=== PATIENT | female | born 1975 | race Caucasian/White ===

== ENCOUNTER 2023-06-14 21:10 | Emergency (ER) | payer OTHER, SELFPAY ==
[2023-06-14 22:03] VITALS: BP 115/75; PULSE 70; RESP 12; TEMP 36.6; O2SAT 97; BMI 21.9
--- NOTE | 2023-06-14 22:23 | ED_ITS ---
HPI - Chest Pain General Time Seen by Provider: 22:23 Date Seen: 06/14/23 Chief Complaint: Chest Pain Stated Complaint: pain in center of chest Time Seen by Provider: 06/14/23 22:23 Source: patient Mode of arrival: ambulatory Limitations: no limitations History of Present Illness HPI narrative: Allyssa is a very pleasant 47-year-old female previously healthy comes to the emergency room for evaluation of chest pain. Patient noted the onset of chest discomfort that she described as somewhat burning after she returned from a lunch today. This was not associated with shortness of breath radiation or vomiting. Patient tried Pepto-Bismol and she thinks maybe it helped she did not pay much attention to this discomfort from 1400 hours until 1700 hours when it seemed to bother her once again. She did take some Tums at home which did not seem to help. She did take 1 baby aspirin prior to arrival here. While she denies vomiting and nausea, she does state that she had a loose stool and that perhaps she felt a little queasy. She still does not feel that an acid taste in her mouth but feels similar to when someone has vomited. She has no history of heart problems, recent illnesses, recent viruses. She did sprain her ankle a little over 2 weeks ago and was in a boot for an extended period. She notes no calf tenderness history of DVT in herself or family. She is not short of breath tonight. Related Data Home Medications Medication Instructions Recorded Confirmed No Known Home Medications 06/14/23 06/14/23 Allergies Allergy/AdvReac Type Severity Reaction Status Date / Time codeine Allergy Verified 06/14/23 22:08 Review of Systems Status of ROS Reports: 10 or more systems reviewed and unremarkable except as noted in History and below Const Denies: fever or chills ENMT Reports: neck pain (Right upper trapezial discomfort.); Denies: throat pain Cardio Reports: chest pain and palpitations (When she has stress or anxiety); Denies: swelling of feet/ankles, lightheadedness or shortness of breath with exertion Resp Denies: shortness of breath, cough or wheezing GI Reports: diarrhea; Denies: abdominal pain, nausea or vomiting Denies: painful urination or urinary frequency Musculo Reports: neck pain (Right upper trapezial discomfort.); Denies: back pain, extremity pain or extremity swelling Integ/Breast Denies: rash or itching Neuro Denies: headache or numbness in extremities Allergy/Immuno Denies: wheezing PFSH PFSH Social History Smoking Status: Never smoker Do you use any of these nicotine containing products: None Second hand tobacco smoke exposure: No How often do you have a drink containing alcohol: monthly or less How often do you have six or more drinks on one occasion: Never AUDIT-C Alcohol total score: 1 Non-prescribed substance use: denies use service: No Exam Narrative Exam Narrative: Ange is alert and oriented. Very pleasant woman. No acute distress. External ears eyes nose clear. Heart with regular rate and rhythm without murmur or rub. Lungs are clear in all lung lara. Abdomen is soft and nontender. Lower extremities without calf tenderness or swelling. Moving all extremities. Const Vital Signs, click to edit/add: Vital Signs - 24 hr 06/14/23 22:03 Temperature 97.8 F Pulse Rate [Left Pulse Oximeter] 70 Respiratory Rate 12 Blood Pressure [Right Upper Arm] 115/75 Pulse Oximetry 97 Oxygen Delivery Method Room Air Documenting provider has reviewed patient's vital signs: yes Course Course ED Course: Differential diagnosis includes but not limited to acute coronary syndrome, pericarditis/myocarditis, esophagitis, reflux, PE, gastritis, biliary colic. Will place IV and obtain EKG and troponin x2. Chest x-ray at this time. CBC, comprehensive, CRP, pending at this time. Reevaluation(s) Reevaluation #1: Initial EKG reassuring as is negative troponin. Will try Toradol 15 mg IV. Reevaluation #2: Patient notes no improvement with Toradol. Her vital signs continue to be within normal limits. No evidence of tachycardia, hypoxia and D-dimer is normal. Patient will receive GI cocktail. Vital Signs Vital signs: Initial Vital Signs Temperature 97.8 F 06/14/23 22:03 Temperature Source Temporal Artery Scan 06/14/23 22:03 Pulse Rate 70 06/14/23 22:03 Respiratory Rate 12 06/14/23 22:03 Blood Pressure 115/75 06/14/23 22:03 Blood Pressure Mean 88 06/14/23 22:03 Blood Pressure Position Supine 06/14/23 22:03 Pulse Oximetry 97 06/14/23 22:03 Oxygen Delivery Method Room Air 06/14/23 22:03 Vital Signs Temperature 97.8 F 06/14/23 22:03 Pulse Rate 70 06/14/23 22:03 Respiratory Rate 12 06/14/23 22:03 Blood Pressure 115/75 06/14/23 22:03 Pulse Oximetry 97 06/14/23 22:03 Oxygen Delivery Method Room Air 06/14/23 22:03 Temperature 97.8 F 06/14/23 22:03 Pulse Rate 70 06/14/23 22:03 Respiratory Rate 12 06/14/23 22:03 Blood Pressure 115/75 06/14/23 22:03 Pulse Oximetry 97 06/14/23 22:03 Oxygen Delivery Method Room Air 06/14/23 22:03 Medications Administered Medications: Generic Name Dose Route Start Last Admin Trade Name Freq PRN Reason Stop Dose Admin Ketorolac Tromethamine 15 mg 06/15/23 00:02 06/15/23 00:08 Ketorolac 15 Mg/Ml Inj IVP 06/15/23 00:03 15 mg ONCE ONE Administration Lidocaine HCl 7.5 ml 06/15/23 00:46 06/15/23 00:54 Lidocaine Hcl 4 % Top Soln 50 Ml Bottle PO 06/15/23 00:47 7.5 ml ONCE ONE Administration Lidocaine/Aluminum/Magnesium/Simeth 30 ml 06/15/23 00:46 06/15/23 00:54 Mag Hydrox/Aluminum Hyd/Simeth 30 Ml Oral.Susp PO 06/15/23 00:47 30 ml ONCE ONE Administration Omeprazole 20 mg 06/15/23 01:17 06/15/23 01:29 Omeprazole [address] PO 06/15/23 01:18 20 mg ONCE ONE Administration MDM - Chest Pain MDM Narrative Medical decision making narrative: 1. Atypical chest pain-patient has tested negative for troponin, negative D- dimer and in the setting of normal heart rate and oxygen levels do not feel that this could be related to PE. Chest x-ray within normal limits. Given the fact that patient did have some loose stools earlier this most likely represents a viral cause. Patient really did not have any improvement of her discomfort with Toradol. Patient's pain with GI cocktail did not initially improved but now has resolved. We will treat her with omeprazole 20 mg p.o. and would like to continue for the next 5-7 days with this medication daily. Of course, should she have worsening symptoms would have her return to the emergency room. At this time her symptoms have resolved, her EKG and troponins are negative and D- dimer is negative as well. 2. Disposition-home at this time. Return for worsening symptoms. Medical Records Data Attestation: I reviewed the patient's medical records. Lab Data Attestation: I reviewed the patient's lab results. Labs: Lab Results 06/14/23 06/14/23 06/15/23 Range/Units 22:30 22:38 00:07 WBC 9.63 (4.50-11.00) K/uL RBC 4.18 (4.00-5.20) m/uL Hgb 12.7 (12.0-16.0) gm/dL Hct 38.7 (33.0-51.0) % MCV 93 (80-100) fL MCH 30 (26-34) pg MCHC 33 (32-36) gm/dL RDW Coeff of Tejal 11.8 (11.5-15.5) % Plt Count 300 (140-440) K/uL Neut % (Auto) 57.2 (42.0-72.0) % Lymph % (Auto) 33.6 (20-44) % [place] % (Auto) 8.1 (0.0-11.0) % Eos % (Auto) 0.9 (0.0-7.0) % Baso % (Auto) 0.1 (0.0-3.0) % Neut # (Auto) 5.50 (1.7-7.0) K/uL Lymph # (Auto) 3.24 H (0.90-2.90) K/uL [place] # (Auto) 0.80 (0.00-0.90) K/UL Eos # (Auto) 0.09 (0.00-0.50) K/uL Baso # (Auto) 0.01 (0.00-0.30) K/uL Abs Immat Gran (auto) 0.01 (0.00-0.30) K/uL Imm/Tot Granulo (auto) 0.1 % D-Dimer Quant (PE/DVT) < 0.27 (0.00-0.50) ug/ml Sodium 137 (135-149) mmol/L Potassium 3.5 L (3.6-5.1) mmol/L Chloride 107 (96-114) mmol/L Carbon Dioxide 23 (20-32) mmol/L Anion Gap 7 (7-15) mEq/L BUN 14 (5-24) mg/dL Creatinine 0.6 (0.5-1.5) mg/dL Estimated Creat Clear 90.69 Estimated GFR 111 ml/min Glucose 106 (60-115) mg/dL Calcium 9.5 (8.4-10.6) mg/dL Total Bilirubin 0.2 (0.1-1.5) mg/dL AST 33 (12-35) U/L ALT 16 (4-35) U/L Alkaline Phosphatase 54 (40-150) U/L C-Reactive Protein 0.5 (0.5-1.0) mg/dL Total Protein 7.4 (6.0-8.3) g/dL Albumin 4.5 (3.3-5.0) g/dL POC Troponin I 0.00 L 0.00 L (0.01-0.04) ng/ml Imaging Data Chest x-ray: Attestation: I have reviewed the pertinent imaging results. My impression: No infiltrates. Radiologist's impression: Cardiovascular and mediastinum: Heart size and vasculature are normal in caliber and appearance. Lungs and pleural spaces: Lungs are clear. No sign of infiltrate or mass. No sign of pleural effusion. No pneumothorax. Bones and soft tissues: No significant findings. IMPRESSION: Unremarkable chest. ECG Data Attestation: I personally reviewed and interpreted this ECG as follows: ECG interpretation date: 06/15/23 Interpretation: EKG 1. By my read shows sinus rhythm at a rate of 69. I do not note any acute ST or T-wave changes. QT and [place] intervals within normal limits. EKG 2. By my read shows sinus rhythm at a rate of 62. No acute ST or T-wave changes are noted. Discharge Plan Discharge Clinical Impression: Reflux gastritis Patient Disposition: Home, Self-Care Condition: Improved Additional Instructions: Continue omeprazole daily for 6 more days. Seek medical attention for continuing or worsening symptoms. Follow-up with your primary MD for recheck. Prescriptions: No Action No Known Home Medications Follow Up/Referrals: Nicolasa Benson MD [Primary Care Provider] - Stand Alone Forms: [employer] Info Instructions
--- NOTE | 2023-06-14 22:41 | CRLHL7_ITS ---
For Patients: As a result of the Century Cures Act, medical imaging exams and procedure reports are released immediately into your electronic medical record. You may view this report before your referring provider. If you have questions, please contact your health care provider. INDICATION: Chest pain. TECHNIQUE: Chest 1 view. COMPARISON: None. FINDINGS: Cardiovascular and mediastinum: Heart size and vasculature are normal in caliber and appearance. Lungs and pleural spaces: Lungs are clear. No sign of infiltrate or mass. No sign of pleural effusion. No pneumothorax. Bones and soft tissues: No significant findings. IMPRESSION: Unremarkable chest. Dictated by Joaquin Boyd MD @ 06/14/2023 11:55:41 PM (Electronically Signed)
[2023-06-14 22:53] LABS: Albumin* 4.5 g/dL (3.3-5.0); Basophils Absolute Auto 0.01 K/uL (0.00-0.30); Basophils Percent Auto 0.1 % (0.0-3.0); Chloride* 107 mmol/L (96-114); Eosinophils Absolute Auto 0.09 K/uL (0.00-0.50); Eosinophils Percent Auto 0.9 % (0.0-7.0); Hematocrit 38.7 % (33.0-51.0); Hemoglobin* 12.7 gm/dL (12.0-16.0); Immature Granulocytes Abs Auto 0.01 K/uL (0.00-0.30); Immature Granulocytes Pct Auto 0.1 %; Lymphocytes Absolute Auto 3.24 K/uL (0.90-2.90); Lymphocytes Percent Auto 33.6 % (20-44); Mean Corpuscular HGB Conc 33 gm/dL (32-36); Mean Corpuscular Hemoglobin 30 pg (26-34); Mean Corpuscular Volume 93 fL (80-100); Monocytes Percent Auto 8.1 % (0.0-11.0); Neutrophils Percent Auto 57.2 % (42.0-72.0); Platelet Count* 300 K/uL (140-440); Potassium* 3.5 mmol/L (3.6-5.1); RDW Coefficient of Variation % 11.8 % (11.5-15.5); Red Blood Count 4.18 m/uL (4.00-5.20); Sodium* 137 mmol/L (135-149); White Blood Count* 9.63 K/uL (4.50-11.00)
[2023-06-14 22:55] LABS: Creatinine* 0.6 mg/dL (0.5-1.5); Est. Creatinine Clearance* 90.69; Estimated Glomerular Filt Rate 111 ml/min
[2023-06-14 22:56] LABS: Alanine Aminotransferase* 16 U/L (4-35); Alkaline Phosphatase* 54 U/L (40-150); Anion Gap 7 mEq/L (7-15); Aspartate Amino Transferase* 33 U/L (12-35); Bilirubin Total* 0.2 mg/dL (0.1-1.5); Blood Urea Nitrogen* 14 mg/dL (5-24); Calcium* 9.5 mg/dL (8.4-10.6); Carbon Dioxide* 23 mmol/L (20-32); Glucose* 106 mg/dL (60-115); Total Protein* 7.4 g/dL (6.0-8.3)
[2023-06-14 22:59] LABS: C Reactive Protein* 0.5 mg/dL (0.5-1.0)
[2023-06-14 23:00] LABS: Slide Review Reflex No
[2023-06-14 23:01] LABS: D Dimer Quantitative* < 0.27 ug/ml (0.00-0.50)
[2023-06-15] MEDS: KETOROLAC 15 MG/ML inj IVP (00:08)
[2023-06-15] MEDS: lidocaine HCL 4 % TOP SOLN 50 ML BOTTLE 7.5 ML PO (00:54)
[2023-06-15] MEDS: MAG HYDROX/ALUMINUM HYD/SIMETH 30 ML ORAL.SUSP PO (00:54)
[2023-06-15] MEDS: OMEPRAZOLE 20 MG CAPSULE DR PO (01:29)
[2023-06-15 01:44] VITALS: PULSE 67; RESP 16; O2SAT 98
== END 2023-06-15 02:07 | disposition home or self-care (01) ==
PROVIDERS: Emergency Provider Family Medicine; PCP Family Medicine
DX: R07.89 Other chest pain (principal); K21.9 Gastro-esophageal reflux disease without esophagitis
CPT/HCPCS: 36415; 71045; 80053; 84484; 85025; 85379; 86140; 93005; 96374; 99284; 99285; A9270; J1885

== ENCOUNTER 2023-10-14 18:33 | Emergency (ER) | payer BC, SELFPAY ==
[2023-10-14 18:55] VITALS: BP 118/61; PULSE 66; TEMP 36.3; O2SAT 98; BMI 21.7
--- NOTE | 2023-10-14 19:43 | CT_ITS ---
Patient: DULCE MARIA DIAZ Facility:?[facility] Patient ID:?[id number] Site Patient ID:?[id number]. Site :?[id number] Study:?CT-Head WO-10/14/2023 8:31:45 PM Ordering Physician:CELE Final Report: Indication: Headache Technique: Volumetric multidetector CT images of the head were obtained without the administration of low osmolar intravenous contrast. Comparison: None available Findings: There is no intra-axial or extra-axial fluid collection. There is no mass effect or midline shift. The ventricles and sulci are normal in size and position for age. The brain parenchyma is grossly preserved in attenuation and lin-white differentiation. The orbits and their contents are grossly within normal limits. The bony calvarium is grossly intact. The paranasal sinuses are clear. The mastoid air cells are well aerated. Impression: No acute intracranial abnormality. Please note that all CT scans at this facility use dose modulation, iterative reconstruction, and/or weight-based dosing when appropriate to reduce radiation dose to as low as reasonably achievable. Dictated by Lalo Go MD @ 10/14/2023 8:44:00 PM Signed by:?Lalo Go MD @10/14/2023 8:44:00 PM (Electronic Signature)
--- NOTE | 2023-10-14 19:57 | ED_ITS ---
HPI - General Adult General Date Seen: 10/14/23 Chief complaint: Headache/Migraine Stated complaint: headache Time Seen by Provider: 10/14/23 19:26 Source: patient, RN notes reviewed and old records reviewed Mode of arrival: ambulatory Limitations: no limitations History of Present Illness HPI narrative: Patient is a 48-year-old woman who presents for evaluation of bitemporal headache. She says she woke up this morning with little bit of a headache, which was mild and not unusual for her. She occasionally, every couple of months says that she gets a headache in this area. It will often be associated with soreness in her neck and shoulders and she typically can use ibuprofen and then sees a chiropractor and improves. Today however, throughout the day the headache seemed to get worse rather than better. 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 It is still bitemporal. It was associated with nausea at this point but no vomiting. It is not particularly positional although she says when she turns her head or moves around she feels like the headache worsens a little bit. She called the clinic to make an appointment and was told to come to the ER. She does not have any neck pain today. She did have fevers last week associated with some upper respiratory symptoms and she has some she had influenza. She has not had a fever since Thursday, 3 days ago. She has not had any unusual rashes. No recent trauma. No visual complaints. Related Data Home Medications Medication Instructions Recorded Confirmed No Known Home Medications 06/14/23 06/14/23 Allergies Allergy/AdvReac Type Severity Reaction Status Date / Time codeine Allergy Verified 06/14/23 22:08 Review of Systems Status of ROS: Reports: 10 or more systems reviewed and unremarkable except as noted in History and below [facility] Social History Smoking Status: Never smoker Do you use any of these nicotine containing products: None Second hand tobacco smoke exposure: No How often do you have a drink containing alcohol: monthly or less How often do you have six or more drinks on one occasion: Never AUDIT-C Alcohol total score: 1 Non-prescribed substance use: denies use service: No Exam Narrative: Exam Narrative: Vital signs as noted above. In general, an alert, well-appearing patient. Head: Normocephalic, atraumatic. Eyes: Pupils are equal reactive. Extraocular movements are full. Conjunctivae are normal. TMs are normal bilaterally. ENT: Mucous membranes are moist. Throat is normal. Neck: Supple without lymphadenopathy. No meningeal signs. Heart: Regular rate and rhythm. No murmur or rub. Lungs: Clear bilaterally. No increased work of breathing, crackles or wheezes. Abdomen: Soft and nontender. No organomegaly. Extremities: Well perfused. No edema. No calf tenderness. Pulses intact. Neurologic: Patient is alert and oriented to person and place. Speech is fluent. Face is symmetric. Moves all extremities equally. Affect: Normal. Skin: Warm and dry. Well perfused. Const: Vital Signs, click to edit/add: Vital Signs - 24 hr 10/14/23 18:55 Temperature 97.4 F L Pulse Rate [Pulse Oximeter] 66 Blood Pressure [Ri ght Upper Arm] 118/61 Pulse Oximetry 98 Oxygen Delivery Me thod Room Air Course Course ED Course: Patient is nontoxic in appearance, headache has been gradual in onset and my suspicion for subarachnoid hemorrhage is quite low. She did have recent illness, consider possibility of something like a sinus infection although the location of her headache is little atypical. She is quite young for giant cell arteritis, does not have temporal tenderness and has a history of headaches in this location over the years. She is afebrile and nontoxic in appearance, no meningeal signs my suspicion for intracranial infection such as meningitis or encephalitis is low as well, but did discuss with her I think it is reasonable to check a few labs given that this headache is atypical for her as well as to do a CT of the head. In the meantime will treat headache with Toradol, Zofran and Benadryl. CT scan by my review is negative, final radiology read is negative. Sinuses are clear. Labs are reassuring as well, white blood cell count is normal, CRP is less than 0.5. Metabolic panel within normal limits, lactate 0.7. Patient feels significantly improved after treatment. I think it is reasonable to let her go home, headache seems possibly migraine related. If she is having more difficulty with frequent more severe headaches would have her follow up with primary care. Return any time for new symptoms such as fever, vomiting, severe uncontrolled pain. Vital Signs Vital signs: Initial Vital Signs Temperature 97.4 F L 10/14/23 18:55 Temperature Source Temporal Artery Scan 10/14/23 18:55 Pulse Rate 66 10/14/23 18:55 Pulse Rhythm Regular 10/14/23 18:55 Blood Pressure 118/61 10/14/23 18:55 Blood Pressure Mean 80 10/14/23 18:55 Blood Pressure Position Sitting 10/14/23 18:55 Pulse Oximetry 98 10/14/23 18:55 Oxygen Delivery Method Room Air 10/14/23 18:55 Vital Signs Temperature 97.4 F L 10/14/23 18:55 Pulse Rate 66 10/14/23 18:55 Blood Pressure 118/61 10/14/23 18:55 Pulse Oximetry 98 10/14/23 18:55 Oxygen Delivery Method Room Air 10/14/23 18:55 Temperature 97.4 F L 10/14/23 18:55 Pulse Rate 66 10/14/23 18:55 Blood Pressure 118/61 10/14/23 18:55 Pulse Oximetry 98 10/14/23 18:55 Oxygen Delivery Method Room Air 10/14/23 18:55 Medications Administered Medications: Discontinued Medications Generic Name Dose Route Start Last Admin Trade Name Freq PRN Reason Stop Dose Admin Diphenhydramine HCl 25 mg 10/14/23 19:42 10/14/23 20:00 Diphenhydramine 50 Mg/Ml Inj IVP 10/14/23 19:43 25 mg ONCE ONE Administration Sodium Chloride 1,000 mls @ 1,000 mls/hr 10/14/23 19:45 10/14/23 21:39 0.9 % Sodium Chloride 1000 Ml IV 10/14/23 20:44 0 mls/hr .Q1H MALA Infusion Ketorolac Tromethamine 15 mg 10/14/23 19:42 10/14/23 20:00 Ketorolac 15 Mg/Ml Inj IVP 10/14/23 19:43 15 mg ONCE ONE Administration Ondansetron HCl 4 mg 10/14/23 19:42 10/14/23 20:00 Ondansetron 2 Mg/Ml Inj IVP 10/14/23 19:43 4 mg ONCE ONE Administration Medical Decision Making Lab Data Labs: Lab Results 10/14/23 Range/Units 20:10 WBC 6.54 (4.50-11.00) K/uL RBC 4.56 (4.00-5.20) m/uL Hgb 13.7 (12.0-16.0) gm/dL Hct 41.5 (33.0-51.0) % MCV 91 (80-100) fL MCH 30 (26-34) pg MCHC 33 (32-36) gm/dL RDW Coeff of Tejal 11.3 L (11.5-15.5) % Plt Count 292 (140-440) K/uL Neut % (Auto) 49.7 (42.0-72.0) % Lymph % (Auto) 41.6 (20-44) % [place] % (Auto) 7.5 (0.0-11.0) % Eos % (Auto) 0.8 (0.0-7.0) % Baso % (Auto) 0.2 (0.0-3.0) % Neut # (Auto) 3.26 (1.7-7.0) K/uL Lymph # (Auto) 2.72 (0.90-2.90) K/uL [place] # (Auto) 0.50 (0.00-0.90) K/UL Eos # (Auto) 0.05 (0.00-0.50) K/uL Baso # (Auto) 0.01 (0.00-0.30) K/uL Abs Immat Gran (auto) 0.01 (0.00-0.30) K/uL Imm/Tot Granulo (auto) 0.2 % Sodium 138 (135-149) mmol/L Potassium 4.0 (3.6-5.1) mmol/L Chloride 104 (96-114) mmol/L Carbon Dioxide 28 (20-32) mmol/L Anion Gap 6 L (7-15) mEq/L BUN 15 (5-24) mg/dL Creatinine 0.5 (0.5-1.5) mg/dL Estimated Creat Clear 102.70 Estimated GFR 115 ml/min Glucose 112 (60-115) mg/dL Lactate 0.7 (0.5-1.9) mmol/L Calcium 9.8 (8.4-10.6) mg/dL C-Reactive Protein < 0.5 L (0.5-1.0) mg/dL Discharge Plan Discharge Clinical Impression: Headache Patient Disposition: Home, Self-Care Condition: Improved Instructions: Acute Headache (DC) Additional Instructions: Your workup tonight is reassuring, all of your lab tests are normal and your CT scan does not show any abnormalities. Return at any time for worsening. See your primary doctor if you are having more frequent headaches. Prescriptions: No Action No Known Home Medications Follow Up/Referrals: Nicolasa Benson MD [Primary Care Provider] - Stand Alone Forms: Client Outlook Info Instructions
[2023-10-14] MEDS: ONDANSETRON 2 MG/ML inj 4 MG IVP (20:00)
[2023-10-14] MEDS: diphenhydrAMINE 50 MG/ML inj 25 MG IVP (20:00)
[2023-10-14] MEDS: KETOROLAC 15 MG/ML inj IVP (20:00)
[2023-10-14 20:23] LABS: Lactate Sepsis w/Reflex* 0.7 mmol/L (0.5-1.9)
[2023-10-14 20:28] LABS: Basophils Absolute Auto 0.01 K/uL (0.00-0.30); Basophils Percent Auto 0.2 % (0.0-3.0); Eosinophils Absolute Auto 0.05 K/uL (0.00-0.50); Eosinophils Percent Auto 0.8 % (0.0-7.0); Hematocrit 41.5 % (33.0-51.0); Hemoglobin* 13.7 gm/dL (12.0-16.0); Immature Granulocytes Abs Auto 0.01 K/uL (0.00-0.30); Immature Granulocytes Pct Auto 0.2 %; Lymphocytes Absolute Auto 2.72 K/uL (0.90-2.90); Lymphocytes Percent Auto 41.6 % (20-44); Mean Corpuscular HGB Conc 33 gm/dL (32-36); Mean Corpuscular Hemoglobin 30 pg (26-34); Mean Corpuscular Volume 91 fL (80-100); Monocytes Percent Auto 7.5 % (0.0-11.0); Neutrophils Absolute Auto 3.26 K/uL (1.7-7.0); Neutrophils Percent Auto 49.7 % (42.0-72.0); Platelet Count* 292 K/uL (140-440); RDW Coefficient of Variation % 11.3 % (11.5-15.5); Red Blood Count 4.56 m/uL (4.00-5.20); White Blood Count* 6.54 K/uL (4.50-11.00)
[2023-10-14 20:30] LABS: Slide Review Reflex No
[2023-10-14 20:40] LABS: Chloride* 104 mmol/L (96-114); Sodium* 138 mmol/L (135-149)
[2023-10-14 20:43] LABS: Anion Gap 6 mEq/L (7-15); Blood Urea Nitrogen* 15 mg/dL (5-24); Carbon Dioxide* 28 mmol/L (20-32); Creatinine* 0.5 mg/dL (0.5-1.5); Estimated Glomerular Filt Rate 115 ml/min
[2023-10-14 20:44] LABS: Calcium* 9.8 mg/dL (8.4-10.6); Glucose* 112 mg/dL (60-115)
[2023-10-14 20:47] LABS: C Reactive Protein* < 0.5 mg/dL (0.5-1.0)
[2023-10-14] MEDS: 0.9 % SODIUM CHLORIDE 1000 ml 1,000 ML IV (20:47)
== END 2023-10-14 21:38 | disposition home or self-care (01) ==
PROVIDERS: Emergency Provider Emergency Medicine; PCP Family Medicine
DX: R51.9 Headache, unspecified (principal)
CPT/HCPCS: 36415; 70450; 80048; 83605; 85025; 86140; 96374; 96375; 99284; J1200; J1885; J2405; J7030

== ENCOUNTER 2025-01-02 08:30 | Outpatient (RCR) | payer BC, SELFPAY | END 2025-03-02 12:36 | disposition home or self-care (01) | PROVIDERS: PCP Family Medicine; Visit Provider Family Medicine | DX: M65.979 Unspecified synovitis and tenosynovitis, unspecified ankle and foot (principal); M25.572 Pain in left ankle and joints of left foot; Z51.89 Encounter for other specified aftercare | CPT/HCPCS: 97033; 97110; 97112; 97161 ==